=== PATIENT | female | born 1985 | race Caucasian/White ===

== ENCOUNTER → 2017-02-13 | Outpatient (CLI) | payer MEDICAID ==
[2017-02-13 17:07] LABS: HEMOGLOBIN 13.7 g/dL (12.2-16.2); LYMPH # 1.5 K/mm3 (0.7-4.5); LYMPH % 27.6 % (10-50.0)
[2017-02-13 17:24] LABS: BUN 14 mg/dL (7-18); GFR (ESTIMATED) 143 ML/MIN (59-)
== END ==
LOC: LAB 16:35
PROVIDERS: Physician Assistant
DX: Z00.00 Encounter for general adult medical examination without abnormal findings (principal)

== ENCOUNTER 2017-02-17 09:05 | Day surgery (SDC) | payer MEDICAID ==
[~2017-02-17] VITALS: Ht 154.9 cm; Wt 36.7 kg
[2017-02-17 17:30] VITALS: BP 109/66
--- NOTE | 2017-02-25 13:09 | Operative Note-Oral/Dental ---
Procedure/Operative Record Procedure DATE OF PROCEDURE: 02/17/17 DATE OF : 83 PREOPERATIVE DIAGNOSIS: 31-year-old white female with acute situational anxiety to the dental setting with some degree of mental retardation present and 22 teeth that are severely decayed and nonrestorable in need of removal POSTOPERATIVE DIAGNOSIS: Same as preop PROCEDURE PERFORMED: Full mouth extraction and alveoloplasty with general anesthesia. X-rays today SURGEON: Lisa Villa ANESTHESIA: Gen. nasotracheal anesthesia today OPERATIVE NOTE: The patient was transported to the [facility] OR pre operative holding room per her father and stepmother. In the holding room, an IV was began.. The patient was then transported to the operating room where she was nasotracheal intubated. Anesthesia was induced and maintained. The patient was draped in the usual manner. 18 intraoral x-rays wer taken. The throat was suctioned free of debris. One single moist throat pack was placed in the posterior oral pharynx. A complete intra-oral exam and review of the complete set of x-rays was completed. The following teeth were removed today per surgical removal tooth number 1, 2,3,4,14,15, 17, 18,19, 20,21, 22,23, 24,25, 26,27, 28, 29, 30,31, and 32 were all removed surgically today. Intraoral 4 quadrant alveoloplasty in conjunction with extractions the upper cassie lower RIGHT upper and LEFT lower LEFT bone was smoothed using Ronjair's and bone fall all flaps were irrigated away all all debris removed. Flaps were closed using 3-0 chromic gut running mattress style suturing. There was no intraoral anesthetic given today. Estimated blood loss was less than 5 mL. The patient tolerated all surgical procedures well and there were no surgical complications. The throat was irrigated and suctioned free of debris. The throat pack was removed. The patient was extubated without complications and taken to the postoperative anesthetic recovery room in satisfactory condition. EBL (ml): 3 DISCHARGE SUMMARY: Following an uncomplicated postoperative recovery the patient was discharged back to home with her family and follow-up exams was scheduled in the regular dental office setting. at 1309
== END 2017-02-17 17:10 | disposition home or self-care (01) ==
LOC: SDC 09:05
PROVIDERS: Dentist General Practice
PROC: 0CTX0Z1 Resection of Lower Tooth, Multiple, Open Approach (ICD-10-PCS; 2017-02-17)
PROC: 0CTW0Z1 Resection of Upper Tooth, Multiple, Open Approach (ICD-10-PCS; principal; 2017-02-17 10:45)
DX: F43.0 Acute stress reaction (principal); K02.9 Dental caries, unspecified
CPT/HCPCS: 41899; D7210 ×22; D7310 ×4; J2405